=== PATIENT | female | born 1990 | race Asian ===

== ENCOUNTER 2019-08-22 15:08 | Emergency (ER) | payer MEDICAID ==
[~2019-08-22] VITALS: Ht 165.1 cm; Wt 61.2 kg
[2019-08-22 15:14] VITALS: BP 130/83
--- NOTE | 2019-08-22 15:18 | NUR ---
ED Nurse Note: Patient walked in to ER c/o bilaterally buttocks rash and SOB. Patient stated it is very tight to breath on my right lung. Patient presented AAO x4, VSS at this time.
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
--- NOTE | 2019-08-22 16:48 | Diagnostic Imaging Report ---
Procedure: XRAY Chest 1v Reason for study: Chest pain. Comparison films: None. FINDINGS: A single one view chest is obtained. Vascularity is normal. The lung noyola are clear bilaterally. Cardiac and mediastinal silhouette are within normal limits. CP angles are sharp. The bony thorax appear unremarkable. IMPRESSION: NO ACUTE CARDIOPULMONARY DISEASE.
[2019-08-22] MEDS ORDERED: ANTI-ITCH28 G1 TP (16:52)
[2019-08-22] MEDS ORDERED: BENADRYL ALLERG25 M1 PO (16:52)
[2019-08-22 17:06] VITALS: BP 130/83
--- NOTE | 2019-08-22 17:07 | NUR ---
ED Nurse Note: Pt cleared by health care Provider for discharge. DC instructions/prescription was given and explained to pt and verbalized understanding of teachings. All medical deviecs such as ID band removed. Pt is AAO x4, ambulatory and left with all personal belongings.
== END 2019-08-22 17:07 | disposition home or self-care (01) ==
LOC: EDBD 15:08 → EMR 15:25
DX: R21 Rash and other nonspecific skin eruption (principal); R07.89 Other chest pain
CPT/HCPCS: 71045; 81025; Z7502; 99283